=== PATIENT | female | born 1990 | race Caucasian/White ===

== ENCOUNTER 2020-11-30 01:04 | Emergency (ER) | payer SELFPAY ==
[~2020-11-30] VITALS: Ht 162.6 cm; Wt 65.0 kg
[2020-11-30 01:40] LABS: BASOPHILS % 0.7 % (0.0-2.0); EOSINOPHILS % 1.6 % (0.0-5.0); HEMATOCRIT. 40.4 % (36.0-48.0); HEMOGLOBIN. 13.6 g/dL (12.0-16.0); LYMPHOCYTES % 28.9 % (20.0-50.0); MEAN CORPUSCULAR HEMOGLOBIN 32.4 pg (28.0-32.0); MEAN CORPUSCULAR VOLUME 96.4 fL (81.0-99.0); MEAN PLATELET VOLUME 7.5 fl (7.4-10.4); MONOCYTES % 7.2 % (2.0-8.0); NEUTROPHILS % 61.6 % (40.0-76.0); PLATELET 400 x1000/uL (130-400); RED BLOOD CELL COUNT 4.19 mill/uL (4.2-5.4); RED CELL DISTRIBUTION WIDTH 13.5 % (11.6-14.6)
[2020-11-30 01:43] LABS: CHLORIDE 112 mEq/L (98-107)
[2020-11-30 01:49] LABS: HCG SCREEN NEGATIVE
[2020-11-30 02:22] LABS: ETHANOL BLOOD 456 mg/dL
[2020-11-30] MEDS ORDERED: SODIUM CHLORIDE 0.9% 1,000 ML IV ONE (06:30)
[2020-11-30 08:05] VITALS: BP 122/81
== END 2020-11-30 08:06 | disposition home or self-care (01) ==
LOC: ER 01:04
DX: F10.129 Alcohol abuse with intoxication, unspecified (principal); I49.9 Cardiac arrhythmia, unspecified; Y90.8 Blood alcohol level of 240 mg/100 ml or more
CPT/HCPCS: 36415; 80053; 80320; 84703; 85025; 93005; 99285; J7030; G0480